=== PATIENT | female | born 1960 | race African-American/Black ===

== ENCOUNTER 2018-10-17 13:27 | Emergency (ER) | payer OTHER ==
[2018-10-17 13:48] VITALS: BP 165/73; PULSE 95; TEMP 98.6; BMI 39.4
[2018-10-17] MEDS ORDERED: IBUPROFEN 400 MG TABLET (FP) PO ONE ×2 (14:11→14:22)
--- NOTE | 2018-10-17 14:11 | PDOC ---
History of Present Illness - General Chief Complaint: Pain Stated Complaint: INJURY Time Seen by Provider: 10/17/18 13:43 History Source: Patient - History of Present Illness Occurred: reports: other Severity: reports: moderate Pain Location: reports: lower extremity Past History - Past Medical History Allergies/Adverse Reactions: Allergies Allergy/AdvReac Type Severity Reaction Status Date / Time No Known Allergies Allergy Verified 10/17/18 13:35 Home Medications: Ambulatory Orders Ibuprofen [Motrin -] 800 mg PO Q6H #30 tablet 10/17/18 COPD: No Other medical history: sciatica - Suicide/Smoking/Psychosocial Hx Smoking History: Former smoker Have you smoked in the past 12 months: No Information on smoking cessation initiated: No Review of Systems - Review of Systems Musculoskeletal: Yes: Joint Pain, Joint Swelling *Physical Exam - Vital Signs Last Vital Signs Temp Pulse Resp BP Pulse Ox 98.6 F 95 H 18 165/73 99 10/17/18 13:31 10/17/18 13:31 10/17/18 13:31 10/17/18 13:31 10/17/18 13:31 - Physical Exam General Appearance: Yes: Appropriately Dressed, Moderate Distress HEENT: positive: Normal Voice Neck: positive: Supple Respiratory/Chest: negative: Respiratory Distress Extremity: positive: Other (ecchymosis/swelling/ttp diffusely to R 5th toe) Integumentary: positive: Dry, Warm Neurologic: positive: Fully Oriented, Alert, Normal Mood/Affect ED Treatment Course - RADIOLOGY Radiology Studies Ordered: Category Date Time Status TOE(S) RIGHT [RAD] Stat Radiology 10/17/18 14:08 Ordered Medical Decision Making - Medical Decision Making 10/17/18 14:09 57 yo F p/w R toe pain and swelling after stubbing toe on weight box 2 days ago. Limping in ED see exam R/o toe fx -XR -pain control 10/17/18 14:41 R 5th toe fx. Maria Luz tape placed. Dc w/ pain control and ortho f/u *DC/Admit/Observation/Transfer Diagnosis at time of Disposition: Toe fracture, right Qualifiers: Encounter type: initial encounter Toe: unspecified toe Fracture type: closed Fracture alignment: nondisplaced Qualified Code(s): S92.911A - Unspecified fracture of right toe(s), initial encounter for closed fracture - Discharge Dispostion Disposition: HOME Condition at time of disposition: Good - Prescriptions Prescriptions: Ibuprofen [Motrin -] 800 mg PO Q6H #30 tablet - Referrals Referrals: Lorenzo Angela MD [Staff Physician] - - Patient Instructions Printed Discharge Instructions: DI for Toe Fracture Additional Instructions: You sustained a fracture to your right fifth toe which will heal in time. Take Motrin for pain as needed and keep maria luz tape in place for comfort and protection as fracture heals. Please follow-up with orthopedic in 1-2 weeks - Post Discharge Activity Forms/Work/School Notes: Back to Work
== END 2018-10-17 14:50 | disposition home or self-care (01) ==
LOC: JER 13:27
DX: S92.511A Displaced fracture of proximal phalanx of right lesser toe(s), initial encounter for closed fracture (principal); W22.8XXA Striking against or struck by other objects, initial encounter; Y93.89 Activity, other specified; Y92.89 Other specified places as the place of occurrence of the external cause; Y99.8 Other external cause status
CPT/HCPCS: 73660-TC-FY; 99282-25